=== PATIENT | female | born 1950 | race Caucasian/White ===

== ENCOUNTER → 2019-06-19 | Outpatient (CLI) | payer MEDICARE, BC ==
[~2019-06-19] MED LIST: REGADENOSON 0.4 MG/5 ML DISP.SYRIN. IV ONE
--- NOTE | 2019-06-19 15:10 | PCVCIMAG ---
APPROVED REPORT Imaging Protocol: Rest Tc-99m/Stress Tc-99m 1 day Study performed: 06/19/2019 09:34:15 Indication: Dyspnea Patient Location: Out-Patient Stress Nurse: More Wood RN, Zeina Schmid RN [place] Tech:Margie Denis [facility] Ht: 5 ft 8 in Wt: 185 lbs BSA: 1.98 m2 HR: 82 bpm BP: 158/86 mmHg BMI: 28.12 Rhythm: Sinus Rhythm, 1st degree AV block Medical History Medical History: HTN Medications: Amlodipine Allergies: No known drug allergies Cardiac Risk Factors: Age Pretest Chest Pain Characteristics: No chest pain Exercise History: Sedentary Resting Data Rest SPECT myocardial perfusion imaging was performed in supine position 45 minutes following the intravenous injection of 10.1 mCi of Tc-99m Sestamibi. Time of rest injection: 0845 Date: 06/19/2019 Administration Route: IV Administration Site: Right Hand Pharmacologic Stress Pharmacologic stress test was performed by injecting Regadenoson 0.4 mg IV push over 10-15 seconds immediately followed by the intravenous injection of 33.1 mCi of Tc-99m Sestamibi. Time of stress injection: 1015 Date: 06/19/2019 Administration Route: IV Administration Site: Right Hand Gated Stress SPECT was performed 45 minutes after stress injection. The images were gated to evaluate regional wall motion and calculate left ventricular ejection fraction. Stress Test Details Stress Test: Pharmacologic stress testing performed using 0.4 mg of regadenoson per 5 mL given IV over 10 seconds. Reason for pharmacologic stress test: physical limitation, unsteady gait. HRMax Heart Rate (APMHR): 150 bpm Resting HR: 82 bpmTarget HR (85% APMHR): 127 bpm Max HR Achieved: 102 bpm % of APMHR: 68 Recovery HR: 97 bpm BP Resting BP: 158/86 mmHg Max BP: 140/72 mmHg Recovery BP: 141/66 mmHg ECG Resting ECG: Sinus Rhythm, 1st degree AV block Stress ECG: Sinus Tachycardia, 1st degree AV block ST Change: Non-ischemic Arrhythmia: PVC's Recovery ECG: Sinus Rhythm, 1st degree AV block Clinical Reason for Termination: Completed protocol Stress Symptoms: Dyspnea, Arm Fatigue Symptoms resolved with caffeine. Study Quality Study: Good Artifact: Mild Breast artifact Study Data Post stress, the left ventricular ejection was 70%.. SSS: 4 SRS: 7 SDS: 0 TID = 0.81. Perfusion There is a small area of mildly reduced uptake in the distal segment of the anterior wall which is seen on the stress images as well as the resting images. This area thickens and moves normally and is most consistent with attenuation artifact. Wall Motion Normal left ventricular wall motion. Nuclear Conclusion ECG Findings: negative for ischemia Clinical Findings: non-diagnostic Nuclear Findings: negative for ischemia Exercise Capacity: not assessed Left Ventricular Function: normal This study is of low probability for inducible ischemia or prior infarct. Normal global and segmental LV systolic function. Artifact: Mild Breast artifact
== END | disposition home or self-care (01) ==
LOC: PCVCIMAG 08:20
PROVIDERS: ATTEND Internal Medicine Cardiovascular Disease
DX: R06.00 Dyspnea, unspecified (principal); R01.1 Cardiac murmur, unspecified; I10 Essential (primary) hypertension
CPT/HCPCS: 78452; 93017; A9500; J2785

== ENCOUNTER → 2019-06-26 | Outpatient (CLI) | payer MEDICARE, BC ==
--- NOTE | 2019-06-26 11:25 | PCVCIMAG ---
APPROVED REPORT Study performed: 06/26/2019 08:42:50 EXAM: Comprehensive 2D, Doppler, and color-flow Echocardiogram Patient Location: Echo lab Status: routine BSA: 1.98 HR: 73 bpmBP: 142/78 mmHg Rhythm: NSR Other Information Study Quality: Adequate Risk Factors: Cardiac Risk Factors: HTN Indications Murmur Dyspnea 2D Dimensions IVSd: 14.01 (7-11mm) LVDd: 44.48 mm PWd: 12.07 (7-11mm)Ascending Ao: 40.67 (22-36mm) LVDs: 35.16 (25-40mm) Left Atrium: 36.90 (27-40mm) Aortic Root: 42.34 mm LV Single Plane 4CH: 49.53 % LV Single Plane 2CH: 48.24 % Biplane EF: 51.7 % Volumes Left Atrial Volume (Systole) Single Plane 4CH: 79.96 mLSingle Plane 2CH: 89.70 mL LA ESV Index: 44.00 mL/m2 Aortic Valve AoV Peak Lefty.: 1.42 m/s AO Peak Gr.: 8.10 mmHgLVOT Max P.47 mmHg LVOT Max V: 0.93 m/s AI Vmax: 4.58 m/s AI Haakon: 2.66 m/s2 AI PHT: 499.95 ms Mitral Valve E/A Ratio: 0.8 MV Decel. Time: 264.48 ms MV E Max Lefty.: 0.65 m/s MV A Lefty.: 0.82 m/s MV Max Lefty.: 6.52 m/s MV Mean Lefty.: 4.96 m/s IVRT: 138.41 ms Pulmonary Valve PV Peak Lefty.: 0.81 m/sPV Peak Gr.: 2.63 mmHg Pulmonary Vein P Vein S: 0.46 m/sP Vein A: 0.40 m/s P Vein D: 0.66 m/sP Vein A Dur.: 138.4 msec P Vein S/D Ratio: 0.70 Tricuspid Valve TR Peak Lefty.: 2.68 m/s TR Peak Gr.: 28.70 mmHg Left Ventricle The left ventricle is normal size. There is normal LV segmental wall motion. Mild concentric left ventricular hypertrophy. The left ventricular systolic function is normal. LVEF is 55%. Grade I - abnormal relaxation pattern. Right Ventricle The right ventricle is normal size. The right ventricular systolic function is normal. Atria Left atrium is moderately dilated. The right atrium size is normal. Aortic Valve The aortic valve is normal in structure. Mild aortic regurgitation. There is no aortic valvular stenosis. 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 Severe mitral regurgitation No evidence of mitral valve stenosis. Tricuspid Valve The tricuspid valve is normal in structure. Mild tricuspid regurgitation with PAP of 36 mmHg. Pulmonic Valve The pulmonary valve is normal in structure. There is no pulmonic valvular regurgitation. Great Vessels The aortic root is normal in size. IVC is normal in size and collapses >50% with inspiration. Pericardium There is no pericardial effusion. There is no pleural effusion. <Conclusion> The left ventricle is normal size. Mild concentric left ventricular hypertrophy. The left ventricular systolic function is normal. Grade I - abnormal relaxation pattern. The right ventricle is normal size. Left atrium is moderately dilated. Mild aortic regurgitation. 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 Severe mitral regurgitation Mild tricuspid regurgitation with PAP of 36 mmHg.
== END | disposition home or self-care (01) ==
LOC: PCVCIMAG 08:58
PROVIDERS: ATTEND Internal Medicine Cardiovascular Disease
DX: I08.3 Combined rheumatic disorders of mitral, aortic and tricuspid valves (principal); I10 Essential (primary) hypertension
CPT/HCPCS: 93005; 93306; G0463

== ENCOUNTER → 2019-07-24 | Outpatient (CLI) | payer MEDICARE, BC | END | disposition home or self-care (01) | LOC: PCVCCLINIC 13:00 | PROVIDERS: ATTEND Internal Medicine Cardiovascular Disease | DX: I34.0 Nonrheumatic mitral (valve) insufficiency (principal); I10 Essential (primary) hypertension; R06.00 Dyspnea, unspecified; I44.30 Unspecified atrioventricular block; I49.3 Ventricular premature depolarization; Z79.899 Other long term (current) drug therapy | CPT/HCPCS: 36415; 93005; G0463 ==